=== PATIENT | female | born 1970 | race Hispanic/Latino ===

== ENCOUNTER 2019-02-26 18:35 | Emergency (ER) | payer SELFPAY ==
[2019-02-26] MEDS ORDERED: traMADol HCl 50 MG TAB ONE (19:35)
--- NOTE | 2019-02-26 20:01 | RAD ---
EXAM: RIGHT FOOT THREE VIEWS: 02/26/19 HISTORY: Pain and swelling following an injury while walking yesterday. There is some soft tissue swelling over the dorsal aspect of the forefoot. Mild degenerative changes. No acute fracture or dislocation. IMPRESSION: Soft tissue swelling over the dorsal aspect of the foot without acute fracture or dislocation. POS: RRE
== END 2019-02-26 19:40 | disposition home or self-care (01) ==
LOC: ERS 18:35
DX: L03.115 Cellulitis of right lower limb (principal); E11.9 Type 2 diabetes mellitus without complications; I10 Essential (primary) hypertension; F32.9 Major depressive disorder, single episode, unspecified; F17.210 Nicotine dependence, cigarettes, uncomplicated

== ENCOUNTER 2019-04-27 16:52 | Inpatient (IN) | payer SELFPAY ==
[2019-04-27] MEDS ORDERED: Nitroglycerin 2% Ointment 1 INCH/1 GM Packet ONE (17:05)
[2019-04-27] MEDS ORDERED: Labetalol HCl 100 MG/20 ML VIAL ONE (17:05)
[2019-04-27 17:11] LABS: #Basophils 0.1 thou/uL (0.0-0.2); #Eosinphils 0.5 thou/uL (0.0-0.7); #Lymphocytes 2.6 thou/uL (1.20-3.40); #Monocytes 0.7 thou/uL (0.11-0.59); #Neutrophils 5.2 thou/uL (1.40-6.50); %Basophils 0.7 % (0.0-1.0); %Eosinophils 5.1 % (0.0-10.0); %Lymphocytes 28.4 % (21.0-51.0); %Monocytes 7.9 % (0.0-10.0); Hemoglobin 13.6 g/dL (12.0-16.0); Mean Corpuscular HGB CONC 34.4 g/dL (32.0-36.0); Mean Corpuscular Hemoglobin 30.3 pg (27.0-31.0); Mean Corpuscular Volume 87.9 fL (78.0-98.0); Mean Platelet Volume 7.6 fL (7.4-10.4); Platelet Count 331 thou/uL (130-400); RBC Distribution Width 11.8 % (11.5-14.5)
[2019-04-27 17:17] LABS: INR-International Normal Ratio 0.9; PTT 24.9 SEC (22.9-36.1); Prothrombin Time 12.2 SEC (12.0-14.7)
[2019-04-27 17:24] LABS: ALT (SGPT) 15 U/L (8-55); AST (SGOT) 9 U/L (5-34); Albumin 3.4 g/dL (3.5-5.0); Alkaline Phosphatase 107 U/L (40-110); Anion Gap 12 mmol/L (10-20); BUN (Urea Nitrogen) 29 mg/dL (7.0-18.7); Bilirubin, Total 0.2 mg/dL (0.2-1.2); CK (CPK) 31 U/L (29-168); Calc. Creatinine Clearance 0 mL/min (70-130); Calcium 8.7 mg/dL (7.8-10.44); Carbon Dioxide 22 mmol/L (22-29); Chloride 105 mmol/L (98-107); Estimated GFR-MDRD 44; Globulin 3.3 g/dL (2.4-3.5); Glucose 476 mg/dL (70-105); Potassium 4.5 mmol/L (3.5-5.1); Protein, Total 6.7 g/dL (6.0-8.3); Sodium 134 mmol/L (136-145)
[2019-04-27] MEDS ORDERED: Aspirin 325 MG TAB ONE (17:36)
[2019-04-27] MEDS ORDERED: Insulin Regular 300 UNITS/3 ML VIAL ONE (17:36)
--- NOTE | 2019-04-27 19:15 | CT ---
CT Brain WO Con: 04/27/2019 5:06 PM CLINICAL HISTORY: Hypertension with left sided vision loss and headache. IMAGING TECHNIQUE: Multiple CT images were obtained of the brain without IV contrast. COMPARISON: None. FINDINGS: Brain: No acute infarct or hemorrhage is evident. No midline shift. Ventricles: Normal. No hydrocephalus.. Skull: Intact.. Visualized Paranasal sinuses: There is opacification of the a few right-sided ethmoid air cells and t he superior aspect of the right maxillary sinus.. Mastoid air cells:Clear. Extracranial soft tissues:Normal. IMPRESSION: No acute intracranial abnormality. Mild paranasal sinus disease Findings called to Dr. Ramirez at 5:15 PM on April 27, 2019.
--- NOTE | 2019-04-27 19:16 | CT ---
CTA of the head with IV contrast and 3-D reformatted imaging. CTA of the neck with IV contrast and 3-D reformatted imaging. INDICATION: Stroke COMPARISON: Noncontrast CT brain dated April 27, 2019 at 5:11 PM FINDINGS: CTA OF THE HEAD WITH CONTRAST: CTA OF THE BRAIN: Right ICA: Patent. Right MCA: Patent. Right NICK: Patent. ACOM: Patent. Left ICA: Patent. Left MCA: Patent. Left NICK: Patent. PCOMs: Patent. Vertebral arteries: Patent. Basilar Artery: Patent. grinder hand: Patent. Incidentals: There is a calcified meningioma measuring 5 mm overlying the left frontal lobe. No abno rmal enhancement is demonstrated. There is moderate mucosal thickening within the right maxillary sinus and right ethmoid air cells. CTA OF THE NECK WITH CONTRAST: Right CCA: Patent. Right ICA: Patent. Right Subclavian: Patent. Right Vertebral Artery: Patent. Left CCA: Originates off a bovine arch configuration. Patent. Left ICA: There is 40% luminal caliber narrowing involving the proximal left internal carotid artery . Left Subclavian: Patent. Left Vertebral Artery: Patent. Aerodigestive tract: Clear. Parotids/Submandibular/Thyroid glands: There is prominent heterogeneity of the thyroid gland suspici ous for multinodular goiter. The visualized submandibular and parotid glands are normal appearing. Lymph nodes: No pathologically enlarged lymph nodes. Lung Apices: Clear. Bones: There is [id number] cervical spondylosis. Incidentals: There is a subcutaneous cyst involving the left aspect of the neck measuring 1.4 cm mateo picious for a sebaceous cyst. IMPRESSION: 1. No hemodynamically significant stenosis, occlusion or aneurysmal formation within the brain. 2. 40% luminal caliber narrowing involving the proximal left internal carotid artery. No additional h emodynamically significant stenosis, occlusion or aneurysm formation seen within the neck. 3. Multinodular goiter. 4. sebaceous cyst of the left neck. 5. Calcified meningioma of the anterior left frontal skull.
[2019-04-27 20:29] LABS: Troponin I 0.017 ng/mL (< 0.028)
[2019-04-27] MEDS ORDERED: Lisinopril 10 MG TAB ONE (22:01)
[2019-04-27] MEDS ORDERED: Proparacaine 0.5% Opth 15 ML BOT ONE (22:01)
[2019-04-27] MEDS ORDERED: Ondansetron PF 4 MG/2 ML Vial IVP PRN (22:54)
[2019-04-27] MEDS ORDERED: Acetaminophen 325 MG Suppository PR PRN (22:54)
--- NOTE | 2019-04-27 23:03 | PDOC.HHP ---
Hospitalist HPI - History of Present Illness headache, blurry vision left eye History of Present Illness: This is a 48 year old female with past medical history of diabetes, hypertension in the past who presented to the ER with headache and left visual loss. The patient states that she woke up this morning and had a severe frontal headache. It was diffuse, non-radiating, exacerbated by light, no alleviating factors. During that time she noticed that she could not see out of her left eye. The patient reports retro-orbital eye pain, denies pain on movement. She states that her visual field appears like black wavy lines on her left side and after a light is shined in her left eye all she sees is black. She states several years ago she had a similar problem where one eye was paralyzed for months due to optic neuritis. This self-resolved. She denies history of MS. The patient states that she is not taking any antihypertensive medications because her PCP discontinued them a year ago. She denies chest pain , shortness of breath, dizziness, lightheadedness, abdominal pain, nausea, vomiting. ED Course: The patient was found to have a blood pressure of 235/116 on arrival. The patient was given nitro and labetalol with improvement in her blood pressure to 189/86. NIH stroke scale was 2. The patient had a CT brain which showed no acute disease. CTA showed no significant stenosis. She was admitted for further workup. Hospitalist ROS - Review of Systems Constitutional: denies: fever, chills Eyes: denies: vision change ENT: denies: ear pain, ear discharge Respiratory: denies: cough, dry, shortness of breath Cardiovascular: denies: chest pain, palpitations, orthopnea Gastrointestinal: denies: nausea, vomiting, abdominal pain Genitourinary: denies: dysuria, frequency, incontinence Musculoskeletal: denies: neck pain, shoulder pain Skin: denies: rash, lesions, prachi, bruising Neurological: denies: weakness, numbness, incoordination Hospitalist History - Past Medical History Cardiac: reports: HTN Endocrine: reports: Diabetes - Past Surgical History Past Surgical History: reports: - Family History Family History: reports: hypertension - Social History Smoking Status: Current every day smoker (smokes 5-6 cigarettes daily for past 35 years) Alcohol: reports: None Drugs: reports: none Living Situation: With Family Domestic Violence: Negative - Exam General Appearance: NAD, awake alert Eye: PERRL, anicteric sclera Eye - other findings: Unable to see in left eye. Unable to see retinal vessels in left eye. TP 15 ENT: normocephalic atraumatic, no oropharyngeal lesions, dry oral mucosa Neck: supple, symmetric, no JVD, no carotid bruit Heart: RRR, no murmur, no gallops Respiratory: CTAB, no wheezes, no rales, no ronchi Gastrointestinal: soft, non-tender, non-distended, normal bowel sounds Extremities: no cyanosis, no clubbing, no edema Skin: normal turgor, no lesions, no rashes Neurological: cranial nerve grossly intact, normal sensation to touch, no focal deficits, no new deficit Musculoskeletal: normal tone, normal strength, no muscle wasting Psychiatric: normal affect, normal behavior, A&O x 3 Hospitalist Results - Labs Result Diagrams: 04/27/19 17:00 04/27/19 17:00 Lab results: WBC 9.0 thou/uL (4.8-10.8) 04/27/19 17:00 Hgb 13.6 g/dL (12.0-16.0) 04/27/19 17:00 Hct 39.5 % (36.0-47.0) 04/27/19 17:00 MCV 87.9 fL (78.0-98.0) 04/27/19 17:00 Plt Count 331 thou/uL (130-400) 04/27/19 17:00 Neutrophils % 58.0 % (42.0-75.0) 04/27/19 17:00 Sodium 134 mmol/L (136-145) L 04/27/19 17:00 Potassium 4.5 mmol/L (3.5-5.1) 04/27/19 17:00 Chloride 105 mmol/L (98-107) 04/27/19 17:00 Carbon Dioxide 22 mmol/L (22-29) 04/27/19 17:00 BUN 29 mg/dL (7.0-18.7) H 04/27/19 17:00 Creatinine 1.30 mg/dL (0.6-1.1) H 04/27/19 17:00 Glucose 476 mg/dL (70-105) H 04/27/19 17:00 Calcium 8.7 mg/dL (7.8-10.44) 04/27/19 17:00 Total Bilirubin 0.2 mg/dL (0.2-1.2) 04/27/19 17:00 AST 9 U/L (5-34) 04/27/19 17:00 ALT 15 U/L (8-55) 04/27/19 17:00 Alkaline Phosphatase 107 U/L (40-110) 04/27/19 17:00 Creatine Kinase 31 U/L (29-168) 04/27/19 17:00 Troponin I 0.017 ng/mL (< 0.028) 04/27/19 19:55 Serum Total Protein 6.7 g/dL (6.0-8.3) 04/27/19 17:00 Albumin 3.4 g/dL (3.5-5.0) L 04/27/19 17:00 - EKG Interpretation EKG: normal sinus rhythm Hospitalist H&P A/P - Plan Plan: This is a 48 year old female who presented with uncontrolled hypertension, headache and left sided visual loss #Hypertensive Emergency #Left sided visual loss - possibly related to malignant hypertension vs retinal ischemia/occlusion vs retinal vein occlusion - s/p labetalol and nitro paste - will check BP q1, aim to keep BP 160-180 for next 24 hours then titrate slowly - CT head negative, CTA shows no significant stenosis. Will call opthalmology consult in the am - trend troponin x 3 #GARY - likely from uncontrolled hypertension - creatinine 1.3, check renal US - UA to evaluate proteinuria, RBC #Hyponatremia - sodium 134, will monitor #Type II diabetes - takes lantus 50 units SC nightly - sliding scale 20 units before each meal Diet: diabetic diet DVT prophylaxis: SCDS Code status: full code Total critical care face to face time spent was > 50 minutes
[2019-04-27 23:41] VITALS: BMI 29.5
[2019-04-27] MEDS ORDERED: FLU VACC QS2019-20(6MOS UP)/PF 60 MCG/0.5 ML SYRINGE IM ONE (23:45)
[2019-04-28] LABS: Troponin I 0.012 ng/mL (< 0.028)
[2019-04-28] MEDS ORDERED: hydrALAZINE 20 MG/ML VIAL SLOW IVP PRN (00:41)
[2019-04-28] MEDS: Acetaminophen 325 MG TAB PO PRN ×3 (00:49→20:38)
[2019-04-28 05:48] LABS: Band 1 % (5-11); Eosinophils 3 % (0-10); Hemoglobin 10.9 g/dL (12.0-16.0); Lymphocytes 32 % (21-51); MDiff Complete? YES; Mean Corpuscular HGB CONC 34.5 g/dL (32.0-36.0); Mean Corpuscular Hemoglobin 30.7 pg (27.0-31.0); Mean Corpuscular Volume 88.9 fL (78.0-98.0); Mean Platelet Volume 7.5 fL (7.4-10.4); Monocytes 6 % (0-10); Neutrophil 54 % (42-75); Platelet Count 257 thou/uL (130-400); RBC Distribution Width 11.6 % (11.5-14.5); Reactive Lymphocytes 4 % (0-10); Red Blood Cell (RBC) Count 3.54 mill/uL (4.20-5.40); White Blood Cell (WBC) Count 9.3 thou/uL (4.8-10.8)
[2019-04-28 06:42] LABS: ALT (SGPT) 10 U/L (8-55); AST (SGOT) 8 U/L (5-34); Albumin 2.7 g/dL (3.5-5.0); Alkaline Phosphatase 73 U/L (40-110); Anion Gap 9 mmol/L (10-20); BUN (Urea Nitrogen) 26 mg/dL (7.0-18.7); Bilirubin, Total 0.2 mg/dL (0.2-1.2); Calc. Creatinine Clearance 86 mL/min (70-130); Calcium 7.7 mg/dL (7.8-10.44); Carbon Dioxide 20 mmol/L (22-29); Chloride 110 mmol/L (98-107); Estimated GFR-MDRD 61; Globulin 2.3 g/dL (2.4-3.5); Glucose 250 mg/dL (70-105); Potassium 4.4 mmol/L (3.5-5.1); Sodium 135 mmol/L (136-145)
[2019-04-28] MEDS: Insulin Regular 300 UNITS/3 ML VIAL SC PRN (06:59)
--- NOTE | 2019-04-28 08:42 | ULT ---
Exam: Bilateral renal ultrasound HISTORY: Elevated creatinine COMPARISON: None FINDINGS: Right kidney: Normal cortical echotexture. No hydronephrosis. Right kidney measurements: 10.4 x 5.6 x 6.4 cm. Left kidney: Normal cortical echotexture. No hydronephrosis Left kidney measurements 11.8 x 6.1 x 4.8 cm. Urinary bladder: Normal mucosa. IMPRESSION: No hydronephrosis.
[2019-04-28] MEDS: HumaLOG 300 UNITS/3 ML VIAL SC SCH ×3 (09:49→17:21)
--- NOTE | 2019-04-28 12:26 | MRI ---
MRI BRAIN WITHOUT CONTRAST: Date: 04/28/19 HISTORY: Left-sided vision loss, hypertension, left-sided headache. FINDINGS: Correlation made with previous day's CT scan. No restricted diffusion is seen. No evidence of infarct, hemorrhage, midline shift, or abnormal extra -axial fluid collections are seen. The ventricular size is normal and the basilar cisterns are patent . There are a few foci of T2 prolongation in the periventricular white matter consistent with mild ch ronic small vessel ischemic disease. There is mucosal disease in the paranasal sinuses. IMPRESSION: No evidence of acute intracranial process. POS: TPC
--- NOTE | 2019-04-28 12:45 | PDOC.HOSPP ---
- Subjective Encounter Date: 04/28/19 Encounter Time: 12:30 Subjective: The patient states her headache is better. She still can't see out of left eye. Left eye pain is slightly better. BP better controlled - Objective Vital Signs & Weight: Vital Signs (12 hours) Temp Pulse Ox 04/28/19 08:00 100 04/28/19 07:24 97.6 F 04/28/19 04:10 98.2 F Weight Weight 170 lb 1.6 oz I&O: 04/27/19 04/28/19 04/29/19 06:59 06:59 06:59 Intake Total 240 Output Total 600 Balance -360 Result Diagrams: 04/28/19 05:17 04/28/19 05:16 Additional Labs: Accuchecks 04/28/19 04/28/19 04/27/19 10:34 06:09 17:04 POC Glucose 295 H 246 H 379 H Hospitalist ROS - Medication Medications: Active Medications Generic Name Dose Route Start Last Admin Trade Name Freq PRN Reason Stop Dose Admin Acetaminophen 650 mg 04/28/19 00:42 04/28/19 09:50 Tylenol PO 650 mg Q6H PRN Administration Headache/Fever or Pain Insulin Human Lispro 20 units 04/28/19 08:00 04/28/19 09:49 Humalog SC 20 unit TID-WM ANG Administration Insulin Human Regular 0 units 04/27/19 22:54 04/28/19 06:59 Humulin R SC 3 unit .MILD SLIDING SCALE PRN Administration Mild Correctional Scale - Exam General Appearance: NAD, awake alert Eye: PERRL, anicteric sclera Eye - other findings: Patient still cannot see out of left eye. ENT: normocephalic atraumatic, no oropharyngeal lesions Neck: supple, symmetric, no JVD, no thyromegaly Heart: RRR, no murmur Respiratory: CTAB, no wheezes, no rales, no ronchi Gastrointestinal: soft, non-tender, non-distended, normal bowel sounds Extremities: no cyanosis, no clubbing, no edema, 1+ LE edema Skin: normal turgor, no lesions, no rashes Neurological: cranial nerve grossly intact, normal sensation to touch, no focal deficits, no new deficit Hosp A/P - Plan This is a 48 year old female who presented with uncontrolled hypertension, headache and left sided visual loss #Hypertensive Emergency #Left sided visual loss - possibly related to malignant hypertension vs retinal ischemia/occlusion vs retinal vein occlusion - Bp better controlled, now in the 140s. Started nifedipine 30 mg daily . Will transfer to floor - MRI showed no stroke, CTA negative, CT head negative. Will check ECHO - opthalmology evaluating patient currently #GARY - likely from uncontrolled hypertension - creatinine 1.3, renal US showed no hydronephrosis - UA to evaluate proteinuria, RBC #Hyponatremia - sodium 134, will monitor #Type II diabetes - takes lantus 50 units SC nightly - sliding scale 20 units before each meal Code status: full code
[2019-04-28] MEDS ORDERED: NIFEdipine XL 30 MG TAB PO SCH (15:45)
[2019-04-28] MEDS ORDERED: Insulin Glargine 50 UNITS in Pre-Filled Syringe 1 EACH SC SCH (21:00)
[2019-04-28] MEDS ORDERED: Lisinopril 10 MG TAB PO SCH (23:45)
[2019-04-29] MEDS: Insulin Regular 300 UNITS/3 ML VIAL SC PRN (06:35)
[2019-04-29 06:53] LABS: Mean Corpuscular HGB CONC 32.8 g/dL (32.0-36.0); Mean Corpuscular Hemoglobin 29.5 pg (27.0-31.0); Mean Corpuscular Volume 89.8 fL (78.0-98.0); Mean Platelet Volume 7.6 fL (7.4-10.4); Platelet Count 299 thou/uL (130-400); RBC Distribution Width 11.8 % (11.5-14.5); Red Blood Cell (RBC) Count 4.06 mill/uL (4.20-5.40); White Blood Cell (WBC) Count 9.2 thou/uL (4.8-10.8)
[2019-04-29 07:10] LABS: ALT (SGPT) 9 U/L (8-55); AST (SGOT) 9 U/L (5-34); Albumin 2.8 g/dL (3.5-5.0); Alkaline Phosphatase 74 U/L (40-110); Anion Gap 9 mmol/L (10-20); BUN (Urea Nitrogen) 18 mg/dL (7.0-18.7); Bilirubin, Total 0.3 mg/dL (0.2-1.2); Calc. Creatinine Clearance 97 mL/min (70-130); Calcium 8.1 mg/dL (7.8-10.44); Carbon Dioxide 22 mmol/L (22-29); Chloride 110 mmol/L (98-107); Estimated GFR-MDRD 71; Globulin 2.7 g/dL (2.4-3.5); Glucose 182 mg/dL (70-105); Potassium 4.1 mmol/L (3.5-5.1); Protein, Total 5.5 g/dL (6.0-8.3); Sodium 137 mmol/L (136-145)
[2019-04-29 07:51] LABS: Band 3 % (5-11); Eosinophils 6 % (0-10); Lymphocytes 29 % (21-51); MDiff Complete? YES; Monocytes 3 % (0-10); Neutrophil 58 % (42-75); RBC Morphology Normal; Reactive Lymphocytes 1 % (0-10)
[2019-04-29] MEDS ORDERED: Lisinopril 10 MG TAB PO SCH (09:00)
[2019-04-29] MEDS ORDERED: NIFEdipine XL 30 MG TAB PO SCH ×2 (09:00)
[2019-04-29] MEDS: HumaLOG 300 UNITS/3 ML VIAL SC SCH ×3 (09:17→17:08)
[2019-04-29 09:20] VITALS: BP 150/78
[2019-04-29 16:37] VITALS: TEMP 98.3
== END 2019-04-29 17:41 | disposition home or self-care (01) | DRG 305 ==
LOC: ERS 16:52 → 2SE 22:39 → IMCU/EMU 04-28 00:25
PROVIDERS: ADMIT Internal Medicine; ATTEND Internal Medicine
DX: I16.1 Hypertensive emergency (principal); N17.9 Acute kidney failure, unspecified; E87.1 Hypo-osmolality and hyponatremia; R29.702 NIHSS score 2; F17.210 Nicotine dependence, cigarettes, uncomplicated; H43.12 Vitreous hemorrhage, left eye; E11.65 Type 2 diabetes mellitus with hyperglycemia
CPT/HCPCS: 36415; 36416; 70450; 70496; 70498; 70551; 76770; 80053; 82550; 84443; 84484; 85007; 85025; 85027; 85610; 85730; 90471; 90686; 93306; 96361; 96374; 96375; G0008; J0360; J1815

== ENCOUNTER 2019-08-18 09:53 | Emergency (ER) | payer OTHER ==
[2019-08-18] MEDS ORDERED: Fluorescein Opthalmic Strip ONE (10:28)
[2019-08-18] MEDS ORDERED: Proparacaine 0.5% Opth 15 ML BOT ONE (10:29)
== END 2019-08-18 10:50 | disposition home or self-care (01) ==
LOC: ERS 09:53
DX: H33.22 Serous retinal detachment, left eye (principal); E11.9 Type 2 diabetes mellitus without complications; I10 Essential (primary) hypertension; F32.9 Major depressive disorder, single episode, unspecified; F17.210 Nicotine dependence, cigarettes, uncomplicated; Z79.4 Long term (current) use of insulin
CPT/HCPCS: 99283

== ENCOUNTER 2019-11-19 00:52 | Emergency (ER) | payer BC, OTHER ==
[2019-11-19 01:28] LABS: #Eosinphils 0.4 thou/uL (0.0-0.7); #Lymphocytes 4.6 thou/uL (1.20-3.40); #Monocytes 1.2 thou/uL (0.11-0.59); #Neutrophils 7.9 thou/uL (1.40-6.50); %Basophils 0.2 % (0.0-1.0); %Eosinophils 3.1 % (0.0-10.0); %Lymphocytes 32.7 % (21.0-51.0); %Monocytes 8.2 % (0.0-10.0); %Neutrophils 55.7 % (42.0-75.0); Mean Corpuscular HGB CONC 33.1 g/dL (32.0-36.0); Mean Corpuscular Hemoglobin 30.2 pg (27.0-31.0); Mean Platelet Volume 7.6 fL (7.4-10.4); Platelet Count 319 thou/uL (130-400); RBC Distribution Width 11.7 % (11.5-14.5); White Blood Cell (WBC) Count 14.2 thou/uL (4.8-10.8)
[2019-11-19 01:48] LABS: Troponin I 0.012 ng/mL (< 0.028)
[2019-11-19 01:53] LABS: Albumin 3.4 g/dL (3.5-5.0)
[2019-11-19 01:54] LABS: Calcium 8.3 mg/dL (7.8-10.44); Chloride 109 mmol/L (98-107); Potassium 3.3 mmol/L (3.5-5.1); Sodium 141 mmol/L (136-145)
[2019-11-19 01:55] LABS: Globulin 2.7 g/dL (2.4-3.5); Glucose 72 mg/dL (70-105); Protein, Total 6.1 g/dL (6.0-8.3)
[2019-11-19 01:57] LABS: Anion Gap 13 mmol/L (10-20); Bilirubin, Total 0.2 mg/dL (0.2-1.2); Carbon Dioxide 22 mmol/L (22-29)
[2019-11-19 01:58] LABS: Alkaline Phosphatase 95 U/L (40-110); Calc. Creatinine Clearance 0 mL/min (70-130); Estimated GFR-MDRD 50
[2019-11-19 01:59] LABS: BUN (Urea Nitrogen) 22 mg/dL (7.0-18.7)
[2019-11-19 02:00] LABS: AST (SGOT) 12 U/L (5-34)
[2019-11-19 02:01] LABS: ALT (SGPT) 8 U/L (8-55)
--- NOTE | 2019-11-19 07:14 | RAD ---
Exam: Chest one view HISTORY:No clinical history is provided Comparison: None FINDINGS: Cardiac silhouette: Normal Aorta: Unremarkable Pulmonary vessels: Normal Costophrenic angles: Clear LUNGS: Minimal left suprahilar opacity. Pneumothorax: None Osseous abnormalities: None IMPRESSION: Minimal left suprahilar opacity. Continued surveillance is recommended CODE T
== END 2019-11-19 02:37 | disposition home or self-care (01) ==
LOC: ERS 00:52
DX: R53.1 Weakness (principal); R53.83 Other fatigue; E11.9 Type 2 diabetes mellitus without complications; I10 Essential (primary) hypertension; E06.3 Autoimmune thyroiditis; F32.9 Major depressive disorder, single episode, unspecified; F17.210 Nicotine dependence, cigarettes, uncomplicated; Z79.4 Long term (current) use of insulin; Z79.899 Other long term (current) drug therapy
CPT/HCPCS: 36416; 71045; 80053; 84484; 85025

== ENCOUNTER 2019-12-30 05:52 | Outpatient (CLI) | payer BC, OTHER ==
[2019-12-31 16:01] LABS: SARS-CoV-2 MS2 Positive; SARS-CoV-2 N Gene Negative; SARS-CoV-2 S Gene Negative; SARS-CoV-2 orf1ab Negative
== END 2019-12-30 05:53 | disposition home or self-care (01) ==
LOC: LABBT 05:52
PROVIDERS: ATTEND Ophthalmology Retina Specialist
DX: Z01.812 Encounter for preprocedural laboratory examination (principal); Z11.59 Encounter for screening for other viral diseases
CPT/HCPCS: 87635; U0003

== ENCOUNTER 2020-01-03 06:13 | Day surgery (SDC) | payer BC ==
[2019-12-27 11:36] VITALS: BMI 27.8
[2020-01-03] MEDS ORDERED: EPINEPHrine 0.3 MG in Ophthalmic Irrigation Solution 500 ML IRR SCH ×2 (06:19→06:35)
[2020-01-03] MEDS ORDERED: Cyclopentolate 1% Opth Drop 2 ML BOT ONE (06:23)
[2020-01-03] MEDS ORDERED: Phenylephrine 2.5% Ophth Soln 5 ML BOT ONE (06:23)
[2020-01-03] MEDS ORDERED: Fentanyl 100 MCG/2 ML VIAL ONE (06:34)
[2020-01-03] MEDS ORDERED: Midazolam HCl 2 mg/2 ml Vial ONE ×2 (06:34→07:27)
[2020-01-03] MEDS ORDERED: PROPOFOL 20 ML ONE (06:35)
[2020-01-03] MEDS ORDERED: Insulin Regular 300 UNITS/3 ML VIAL ONE (07:29)
--- NOTE | 2020-01-03 09:15 | OP ---
DATE OF PROCEDURE: 01/03/2020 PRINCIPAL PREOPERATIVE DIAGNOSES: 1. Vitreous hemorrhage, left eye. 2. Tractional retinal detachment, left eye. 3. Proliferative diabetic retinopathy, left eye. POSTOPERATIVE DIAGNOSES: 1. Vitreous hemorrhage, left eye. 2. Tractional retinal detachment, left eye. 3. Proliferative diabetic retinopathy, left eye. PROCEDURES PERFORMED: 1. 25-gauge pars plana vitrectomy, left eye. 2. Tractional retinal detachment repair, left eye. 3. Endolaser panretinal photocoagulation, left eye. ESTIMATED BLOOD LOSS: None. SPECIMENS REMOVED: None. COMPLICATIONS: None. ANESTHESIA: MAC with sub-Tenon block. DESCRIPTION OF PROCEDURE: The patient was identified in the preoperative holding area. The correct eye being the left eye was marked for surgery. The patient was taken to the operating room, where MAC anesthesia was induced. The left eye was prepped and draped in the usual sterile ophthalmic fashion for surgery. A wire-clip lid speculum was placed. An inferonasal conjunctival peritomy was fashioned with Yodit scissors for administration of sub-Tenon block. The block consisted of 1:1 ratio of 4% lidocaine and 0.75% Marcaine. Total of 5 mL was administered. A standard 25-gauge pars plana vitrectomy platform was fashioned with trocars placed approximately 4 mm from the limbus. The infusion was noted to be within the vitreous cavity prior to being turned on to infusion pressure of 30 mmHg. The light pipe and micro vitrector were introduced in the eye under visualization of the BIOM viewing system. A significant vitreous hemorrhage was noted obscuring view of the fundus. A careful core vitrectomy was performed progressively working posteriorly with an improved visualization of the retina. Following completion of the core vitrectomy, a progressive peripheral shave vitrectomy was performed relieving traction from the opacified posterior hyaloid. A tractional retinal detachment was noted with extensive fibers proliferation over the optic nerve extending inferotemporally as well as along the inferotemporal arcade vessels. These areas of tractional retinal detachment were delaminated and segmented with the use of the micro vitrector. Following vitrectomy, significant relaxation of the retina was noted. No defects were noted within the retina during this time. An inferior scleral depressed exam was performed to help to assist in removal of any vitreous hemorrhage. A 360-degree panretinal photocoagulation was placed with the Endolaser sparing of the 3 and 9 o'clock meridians. The cannulas were sequentially removed with suturing of the supranasal sclerotomy required with 8-0 Vicryl suture. Following suturing, all sclerotomies were noted to be watertight. Subconjunctival Ancef and Kenalog were injected. The wire lid speculum was removed followed by application of TobraDex ophthalmic ointment and a light patch and shield. The patient tolerated the procedure well and was taken to outpatient recovery area in good condition. Job ID: [id number]
[2020-01-03] MEDS ORDERED: Lidocaine 1% PF 5 ML VIAL ONE (11:55)
[2020-01-03] MEDS ORDERED: Lidocaine 4% PF 5 ML AMP ONE (11:55)
[2020-01-03] MEDS ORDERED: Triamcinolone 40 MG/ML VIAL ONE (11:55)
[2020-01-03] MEDS ORDERED: CEFAZOLIN 1 GM VIAL ONE (11:55)
[2020-01-03] MEDS ORDERED: Bupivacaine PF 0.75% SDV 10 ML ONE (11:55)
[2020-01-03] MEDS ORDERED: Maxitrol 0.1% Opth Oint 3.5 GM TUBE ONE (11:55)
[2020-01-03] MEDS ORDERED: PROPOFOL 200 MG/20 ML VIAL ONE (11:55)
== END 2020-01-03 09:30 | disposition home or self-care (01) ==
LOC: SDC 06:13
PROVIDERS: ATTEND Ophthalmology Retina Specialist
PROC: 08U10JZ Supplement of Left Eye with Synthetic Substitute, Open Approach (ICD-10-PCS; principal; 2020-01-03)
PROC: 08T53ZZ Resection of Left Vitreous, Percutaneous Approach (ICD-10-PCS; principal; 2020-01-03)
DX: E11.3532 Type 2 diabetes mellitus with proliferative diabetic retinopathy with traction retinal detachment not involving the macula, left eye (principal); H43.12 Vitreous hemorrhage, left eye; Z79.4 Long term (current) use of insulin; Z79.899 Other long term (current) drug therapy
CPT/HCPCS: 36416; J0171; J0690; J1815; J2001; J2250; J2704; J3010; J3301; J3490

== ENCOUNTER 2020-03-22 13:54 | Outpatient (CLI) | payer BC ==
--- NOTE | 2020-03-22 14:42 | ULT ---
BILATERAL RENAL ULTRASOUND: Date: 03/22/2020 HISTORY: Stage III chronic renal disease. FINDINGS: The right kidney measures 10.4 cm in length and the left kidney measures 11.3 cm in length. A 1.6 x 1 .3 x 1.5 cm cyst is seen in the right kidney. No hydronephrosis seen on either side. The bladder volu me is about 60 mL. The urinary bladder is grossly unremarkable. IMPRESSION: Right renal cyst. POS: AH
--- NOTE | 2020-03-22 14:51 | ULT ---
BILATERAL LOWER EXTREMITY VENOUS DOPPLER ULTRASOUND: Date: 03/22/2020 HISTORY: Bilateral lower extremity pain. Edema in right ankle. TECHNIQUE: Dejesus scale ultrasound with color flow and spectral Doppler imaging of the deep venous systems of the lower extremities was performed bilaterally. FINDINGS: There is good flow, compression, and augmentation noted in the common femoral, femoral, deep femoral, popliteal, posterior tibial, and greater saphenous veins on both sides. IMPRESSION: No evidence of deep venous thrombosis in either lower extremity. POS: AH
== END 2020-03-22 13:55 | disposition home or self-care (01) ==
LOC: BICULT 13:54
PROVIDERS: ATTEND Internal Medicine Nephrology
DX: N18.3 Chronic kidney disease, stage 3 (moderate) (principal); R60.0 Localized edema; N28.1 Cyst of kidney, acquired
CPT/HCPCS: 76770; 93970

== ENCOUNTER 2020-04-16 19:15 | Emergency (ER) | payer BC ==
[2020-04-16] MEDS ORDERED: diphenhydrAMINE 50 MG/ML VIAL ONE (20:01)
[2020-04-16] MEDS ORDERED: Magnesium 2 GM/50 ML BAG (IN WATER) ONE (20:01)
[2020-04-16] MEDS ORDERED: Acetaminophen 500 MG TAB ONE (20:01)
[2020-04-16] MEDS ORDERED: Metoclopramide HCl 10 MG/2 ML VIAL ONE (20:01)
== END 2020-04-16 21:05 | disposition home or self-care (01) ==
LOC: ERS 19:15
DX: R51.9 Headache, unspecified (principal); E11.9 Type 2 diabetes mellitus without complications; I10 Essential (primary) hypertension; Z87.891 Personal history of nicotine dependence; Z79.4 Long term (current) use of insulin; Z79.899 Other long term (current) drug therapy
CPT/HCPCS: 96365; 96368; 96375; J1200; J2765; J3475

== ENCOUNTER 2020-11-17 10:47 | Emergency (ER) | payer BC, SELFPAY ==
[2020-11-17] MEDS ORDERED: Metoclopramide HCl 10 MG/2 ML VIAL ONE (11:28)
[2020-11-17] MEDS ORDERED: diphenhydrAMINE 50 MG/ML VIAL ONE (11:44)
== END 2020-11-17 13:23 | disposition home or self-care (01) ==
LOC: ERS 10:47
DX: R51.9 Headache, unspecified (principal); E11.9 Type 2 diabetes mellitus without complications; I10 Essential (primary) hypertension; Z87.891 Personal history of nicotine dependence; Z79.4 Long term (current) use of insulin; Z79.899 Other long term (current) drug therapy
CPT/HCPCS: 36416; 96365; 96368; J1200; J2765

== ENCOUNTER 2021-04-09 18:50 | Emergency (ER) | payer SELFPAY ==
[2021-04-09] MEDS ORDERED: Fluorescein Opthalmic Strip ONE (19:43)
[2021-04-09] MEDS ORDERED: Proparacaine 0.5% Opth 15 ML BOT ONE (19:43)
== END 2021-04-09 20:20 | disposition home or self-care (01) ==
LOC: ERS 18:50
DX: S05.01XA Injury of conjunctiva and corneal abrasion without foreign body, right eye, initial encounter (principal); I10 Essential (primary) hypertension; E11.9 Type 2 diabetes mellitus without complications; F17.210 Nicotine dependence, cigarettes, uncomplicated; Z79.4 Long term (current) use of insulin; Z79.899 Other long term (current) drug therapy; X58.XXXA Exposure to other specified factors, initial encounter
CPT/HCPCS: 99282

== ENCOUNTER 2021-10-06 16:52 | Emergency (ER) | payer SELFPAY | END 2021-10-06 17:42 | disposition left against medical advice (07) | LOC: ERS 16:52 | DX: Z53.21 Procedure and treatment not carried out due to patient leaving prior to being seen by health care provider (principal) ==

== ENCOUNTER 2021-12-15 03:56 | Inpatient (IN) | payer SELFPAY ==
[2021-12-15] MEDS ORDERED: cloNIDine 0.1 MG TAB ONE (04:11)
[2021-12-15 04:40] LABS: #Basophils 0.1 thou/uL (0.0-0.2); #Eosinphils 0.6 thou/uL (0.0-0.7); #Lymphocytes 2.9 thou/uL (1.20-3.40); #Monocytes 0.8 thou/uL (0.11-0.59); #Neutrophils 5.3 thou/uL (1.40-6.50); %Basophils 0.9 % (0.0-1.0); %Lymphocytes 30.2 % (21.0-51.0); %Monocytes 7.9 % (0.0-10.0); %Neutrophils 55.1 % (42.0-75.0); Hemoglobin 13.7 g/dL (12.0-16.0); Mean Corpuscular HGB CONC 32.5 g/dL (32.0-36.0); Mean Corpuscular Hemoglobin 29.6 pg (27.0-31.0); Mean Corpuscular Volume 91.2 fL (78.0-98.0); Mean Platelet Volume 7.9 fL (7.4-10.4); Platelet Count 272 thou/uL (130-400); RBC Distribution Width 12.3 % (11.5-14.5); Red Blood Cell (RBC) Count 4.63 mill/uL (4.20-5.40); White Blood Cell (WBC) Count 9.6 thou/uL (4.8-10.8)
[2021-12-15 04:56] LABS: Anion Gap 10 mmol/L (10-20); BUN (Urea Nitrogen) 37 mg/dL (9.8-20.1); Calc. Creatinine Clearance 0 mL/min (70-130); Carbon Dioxide 21 mmol/L (22-29); Chloride 107 mmol/L (98-107); Potassium 4.7 mmol/L (3.5-5.1); Sodium 133 mmol/L (136-145)
[2021-12-15 04:57] LABS: ALT (SGPT) 10 U/L (8-55); AST (SGOT) 9 U/L (5-34); Albumin 2.7 g/dL (3.5-5.0); Alkaline Phosphatase 119 U/L (40-110); Bilirubin, Total 0.3 mg/dL (0.2-1.2); Calcium 8.1 mg/dL (7.8-10.44); Glucose 370 mg/dL (70-105); Protein, Total 5.7 g/dL (6.0-8.3)
[2021-12-15] MEDS ORDERED: Dextrose 5% in Water 1,000 ML IV PRN (05:37)
[2021-12-15] MEDS ORDERED: hydrALAZINE 20 MG/ML VIAL SLOW IVP PRN (05:37)
[2021-12-15] MEDS ORDERED: Labetalol HCl 100 MG/20 ML VIAL SLOW IVP PRN (05:37)
[2021-12-15] MEDS ORDERED: Ondansetron PF 4 MG/2 ML Vial IVP PRN (05:37)
[2021-12-15] MEDS ORDERED: Dextrose 50% Abboject 50 ML SYRINGE SLOW IVP PRN (05:37)
[2021-12-15] MEDS ORDERED: Ondansetron ODT 4 MG TAB PO PRN (05:37)
[2021-12-15] MEDS ORDERED: Acetaminophen 500 MG TAB PO PRN (05:37)
[2021-12-15] MEDS ORDERED: Aspirin Chewable 81 MG TAB PO SCH (06:00)
[2021-12-15] MEDS ORDERED: Metoprolol Tartrate 25 MG TAB PO SCH (06:00)
[2021-12-15 08:06] LABS: Troponin I 0.019 ng/mL (< 0.028)
[2021-12-15] MEDS ORDERED: Famotidine 20 MG TAB PO SCH (09:00)
[2021-12-15] MEDS: Aspirin 81 mg Enteric Coated Tablet PO SCH (09:20)
[2021-12-15] MEDS: Metoprolol Tartrate 25 MG TAB PO SCH ×2 (09:21→19:54)
[2021-12-15] MEDS: Sodium Chloride 0.9% 1,000 ML IV SCH (09:22)
[2021-12-15 10:20] VITALS: BMI 30.9
[2021-12-15 10:55] LABS: Troponin I 0.018 ng/mL (< 0.028)
[2021-12-15] MEDS: HumaLOG 300 UNITS/3 ML VIAL SC PRN ×3 (12:04→20:49)
[2021-12-15] MEDS ORDERED: Lactated Ringer's 500 ML IV SCH ×2 (21:30→22:30)
[2021-12-16] MEDS ORDERED: Fluticasone Propionate Nasal Spray 16 gm Bottle NASAL PRN (01:29)
[2021-12-16 04:44] LABS: #Basophils 0.1 thou/uL (0.0-0.2); #Eosinphils 0.6 thou/uL (0.0-0.7); #Lymphocytes 3.6 thou/uL (1.20-3.40); #Monocytes 0.9 thou/uL (0.11-0.59); %Basophils 0.7 % (0.0-1.0); %Eosinophils 5.5 % (0.0-10.0); %Lymphocytes 32.4 % (21.0-51.0); %Monocytes 7.6 % (0.0-10.0); %Neutrophils 53.8 % (42.0-75.0); Hemoglobin 12.2 g/dL (12.0-16.0); Mean Corpuscular HGB CONC 32.8 g/dL (32.0-36.0); Mean Corpuscular Volume 91.5 fL (78.0-98.0); Mean Platelet Volume 7.6 fL (7.4-10.4); Platelet Count 255 thou/uL (130-400); RBC Distribution Width 12.5 % (11.5-14.5); Red Blood Cell (RBC) Count 4.07 mill/uL (4.20-5.40); White Blood Cell (WBC) Count 11.1 thou/uL (4.8-10.8)
[2021-12-16 05:13] LABS: Hemoglobin A1c 11.5 % (4.0-6.0)
[2021-12-16 05:41] LABS: ALT (SGPT) 10 U/L (8-55); AST (SGOT) 8 U/L (5-34); Albumin 2.4 g/dL (3.5-5.0); Alkaline Phosphatase 85 U/L (40-110); Anion Gap 8 mmol/L (10-20); BUN (Urea Nitrogen) 34 mg/dL (9.8-20.1); Bilirubin, Total 0.3 mg/dL (0.2-1.2); Calc. Creatinine Clearance 39 mL/min (70-130); Calcium 7.8 mg/dL (7.8-10.44); Carbon Dioxide 20 mmol/L (22-29); Cardiac Risk 4.8 (Less than 4.5); Chloride 110 mmol/L (98-107); Cholesterol 176 mg/dl (< 200 Desired); Globulin 2.5 g/dL (2.4-3.5); Glucose 250 mg/dL (70-105); HDL Cholesterol 37 mg/dL (>60 Neg Risk); LDL Cholesterol, Calculated 116 mg/dL; Magnesium 1.8 mg/dL (1.6-2.6); Potassium 4.8 mmol/L (3.5-5.1); Protein, Total 4.9 g/dL (6.0-8.3); Sodium 133 mmol/L (136-145); Triglycerides 113 mg/dL (Less than 150)
[2021-12-16] MEDS: Sodium Chloride 0.9% 1,000 ML IV SCH (05:49)
[2021-12-16] MEDS ORDERED: Carvedilol 6.25 MG TAB PO SCH (10:15)
[2021-12-16] MEDS: NIFEdipine XL 60 MG TAB PO SCH (11:42)
[2021-12-16] MEDS: Famotidine 20 MG TAB PO SCH (11:45)
[2021-12-16] MEDS: Metoprolol Tartrate 25 MG TAB PO SCH (11:47)
[2021-12-16] MEDS: Aspirin 81 mg Enteric Coated Tablet PO SCH (11:50)
[2021-12-16] MEDS: HumaLOG 300 UNITS/3 ML VIAL SC PRN (11:55)
[2021-12-16] MEDS: HumaLOG 300 UNITS/3 ML VIAL SC SCH ×3 (12:02→18:30)
[2021-12-16] MEDS ORDERED: HumaLOG 300 UNITS/3 ML VIAL SC SCH (17:45)
[2021-12-16] MEDS: Carvedilol 6.25 MG TAB PO SCH (17:53)
[2021-12-16] MEDS: Insulin Glargine 30 UNITS/0.3 ML VIAL SC SCH (22:54)
[2021-12-16] MEDS ORDERED: Insulin Glargine 30 UNITS/0.3 ML VIAL SC SCH (23:00)
[2021-12-17] MEDS: Sodium Chloride 0.9% 1,000 ML IV SCH ×2 (04:17→04:18)
[2021-12-17] MEDS: Levothyroxine Sodium 50 MCG TAB PO SCH (04:49)
[2021-12-17 05:00] LABS: #Eosinphils 0.5 thou/uL (0.0-0.7); #Lymphocytes 3.2 thou/uL (1.20-3.40); #Monocytes 0.8 thou/uL (0.11-0.59); #Neutrophils 4.7 thou/uL (1.40-6.50); %Basophils 0.3 % (0.0-1.0); %Eosinophils 5.8 % (0.0-10.0); %Lymphocytes 34.4 % (21.0-51.0); %Monocytes 8.9 % (0.0-10.0); %Neutrophils 50.6 % (42.0-75.0); Hemoglobin 11.8 g/dL (12.0-16.0); Mean Corpuscular HGB CONC 32.3 g/dL (32.0-36.0); Mean Corpuscular Hemoglobin 29.8 pg (27.0-31.0); Mean Corpuscular Volume 92.3 fL (78.0-98.0); Mean Platelet Volume 7.9 fL (7.4-10.4); Platelet Count 253 thou/uL (130-400); RBC Distribution Width 12.5 % (11.5-14.5); Red Blood Cell (RBC) Count 3.96 mill/uL (4.20-5.40); White Blood Cell (WBC) Count 9.2 thou/uL (4.8-10.8)
[2021-12-17 05:30] LABS: Anion Gap 10 mmol/L (10-20); BUN (Urea Nitrogen) 37 mg/dL (9.8-20.1); Calc. Creatinine Clearance 40 mL/min (70-130); Calcium 7.9 mg/dL (7.8-10.44); Carbon Dioxide 21 mmol/L (22-29); Chloride 112 mmol/L (98-107); Glucose 206 mg/dL (70-105); Sodium 138 mmol/L (136-145)
[2021-12-17] MEDS ORDERED: HumaLOG 300 UNITS/3 ML VIAL SC SCH ×4 (08:00→22:32)
[2021-12-17] MEDS: Carvedilol 6.25 MG TAB PO SCH ×2 (08:54→17:38)
[2021-12-17] MEDS: NIFEdipine XL 60 MG TAB PO SCH (08:54)
[2021-12-17] MEDS: Famotidine 20 MG TAB PO SCH (08:54)
[2021-12-17] MEDS: Aspirin 81 mg Enteric Coated Tablet PO SCH (08:54)
[2021-12-17] MEDS ORDERED: Carvedilol 6.25 MG TAB PO SCH (10:15)
[2021-12-17] MEDS: HumaLOG 300 UNITS/3 ML VIAL SC PRN (11:00)
[2021-12-17] MEDS: HumaLOG 300 UNITS/3 ML VIAL SC SCH ×2 (13:13→17:39)
[2021-12-17 13:26] LABS: Glucose POC Confirmation 357 mg/dl (70-105)
[2021-12-17] MEDS: Insulin Glargine 30 UNITS/0.3 ML VIAL SC SCH (20:18)
[2021-12-18] MEDS: Levothyroxine Sodium 50 MCG TAB PO SCH (04:02)
[2021-12-18 05:21] LABS: Anion Gap 14 mmol/L (10-20); BUN (Urea Nitrogen) 37 mg/dL (9.8-20.1); Calc. Creatinine Clearance 39 mL/min (70-130); Carbon Dioxide 15 mmol/L (22-29); Chloride 111 mmol/L (98-107); Glucose 196 mg/dL (70-105); Potassium 5.8 mmol/L (3.5-5.1); Sodium 134 mmol/L (136-145)
[2021-12-18 05:24] LABS: #Basophils 0.1 thou/uL (0.0-0.2); #Eosinphils 0.7 thou/uL (0.0-0.7); #Lymphocytes 3.1 thou/uL (1.20-3.40); #Monocytes 0.7 thou/uL (0.11-0.59); #Neutrophils 6.3 thou/uL (1.40-6.50); %Basophils 0.6 % (0.0-1.0); %Eosinophils 6.4 % (0.0-10.0); %Lymphocytes 28.9 % (21.0-51.0); %Monocytes 6.3 % (0.0-10.0); %Neutrophils 57.7 % (42.0-75.0); Hemoglobin 13.6 g/dL (12.0-16.0); Mean Corpuscular HGB CONC 32.3 g/dL (32.0-36.0); Mean Corpuscular Hemoglobin 30.5 pg (27.0-31.0); Mean Corpuscular Volume 94.5 fL (78.0-98.0); Mean Platelet Volume 9.8 fL (7.4-10.4); Platelet Count 151 thou/uL (130-400); RBC Distribution Width 12.7 % (11.5-14.5); Red Blood Cell (RBC) Count 4.46 mill/uL (4.20-5.40); White Blood Cell (WBC) Count 10.9 thou/uL (4.8-10.8)
[2021-12-18] MEDS: Aspirin 81 mg Enteric Coated Tablet PO SCH (08:22)
[2021-12-18] MEDS: Famotidine 20 MG TAB PO SCH (08:22)
[2021-12-18] MEDS: Carvedilol 6.25 MG TAB PO SCH ×2 (08:23→16:19)
[2021-12-18] MEDS: FLUoxetine HCl 20 MG CAP PO SCH (08:23)
[2021-12-18] MEDS: NIFEdipine XL 60 MG TAB PO SCH ×2 (08:23→20:53)
[2021-12-18] MEDS: HumaLOG 300 UNITS/3 ML VIAL SC SCH ×3 (08:25→16:19)
[2021-12-18] MEDS ORDERED: Insulin Glargine 30 UNITS/0.3 ML VIAL SC SCH ×2 (09:00→21:00)
[2021-12-18] MEDS ORDERED: Sodium Bicarbonate 150 MEQ in Dextrose 5% in Water 1,000 ML IV SCH (10:00)
[2021-12-18] MEDS: Sodium Bicarbonate Tab 325 MG TAB PO SCH ×3 (11:05→20:53)
[2021-12-18 16:34] LABS: Anion Gap 11 mmol/L (10-20); BUN (Urea Nitrogen) 36 mg/dL (9.8-20.1); Calc. Creatinine Clearance 34 mL/min (70-130); Calcium 7.5 mg/dL (7.8-10.44); Carbon Dioxide 19 mmol/L (22-29); Chloride 106 mmol/L (98-107); Glucose 387 mg/dL (70-105); Potassium 4.9 mmol/L (3.5-5.1); Sodium 131 mmol/L (136-145)
[2021-12-18] MEDS: HumaLOG 300 UNITS/3 ML VIAL SC PRN ×2 (18:10→21:12)
[2021-12-18] MEDS ORDERED: HumaLOG 300 UNITS/3 ML VIAL SC SCH (21:19)
[2021-12-19 05:16] LABS: #Eosinphils 0.6 thou/uL (0.0-0.7); #Lymphocytes 2.6 thou/uL (1.20-3.40); #Monocytes 0.7 thou/uL (0.11-0.59); #Neutrophils 5.9 thou/uL (1.40-6.50); %Basophils 0.4 % (0.0-1.0); %Lymphocytes 26.6 % (21.0-51.0); %Monocytes 7.4 % (0.0-10.0); %Neutrophils 59.7 % (42.0-75.0); Hemoglobin 11.5 g/dL (12.0-16.0); Mean Corpuscular HGB CONC 32.8 g/dL (32.0-36.0); Mean Corpuscular Hemoglobin 29.9 pg (27.0-31.0); Mean Corpuscular Volume 91.1 fL (78.0-98.0); Mean Platelet Volume 8.3 fL (7.4-10.4); Platelet Count 226 thou/uL (130-400); RBC Distribution Width 12.2 % (11.5-14.5); Red Blood Cell (RBC) Count 3.83 mill/uL (4.20-5.40)
[2021-12-19 05:37] LABS: Anion Gap 13 mmol/L (10-20); BUN (Urea Nitrogen) 44 mg/dL (9.8-20.1); Calc. Creatinine Clearance 34 mL/min (70-130); Calcium 7.8 mg/dL (7.8-10.44); Carbon Dioxide 22 mmol/L (22-29); Chloride 107 mmol/L (98-107); Glucose 240 mg/dL (70-105); Potassium 4.7 mmol/L (3.5-5.1); Sodium 137 mmol/L (136-145)
[2021-12-19] MEDS: HumaLOG 300 UNITS/3 ML VIAL SC PRN (05:48)
[2021-12-19] MEDS: Levothyroxine Sodium 50 MCG TAB PO SCH (05:49)
[2021-12-19] MEDS: Famotidine 20 MG TAB PO SCH (08:28)
[2021-12-19] MEDS: Aspirin 81 mg Enteric Coated Tablet PO SCH (08:29)
[2021-12-19] MEDS: Carvedilol 6.25 MG TAB PO SCH (08:29)
[2021-12-19] MEDS: NIFEdipine XL 60 MG TAB PO SCH (08:29)
[2021-12-19] MEDS: Sodium Bicarbonate Tab 325 MG TAB PO SCH (08:29)
[2021-12-19] MEDS: FLUoxetine HCl 20 MG CAP PO SCH (08:29)
[2021-12-19] MEDS: HumaLOG 300 UNITS/3 ML VIAL SC SCH ×2 (08:31→11:33)
[2021-12-19] MEDS ORDERED: Insulin Glargine 30 UNITS/0.3 ML VIAL SC SCH ×2 (09:00→10:15)
[2021-12-19 11:55] VITALS: BP 109/53; TEMP 98.2
[2021-12-20] MEDS ORDERED: Insulin Glargine 30 UNITS/0.3 ML VIAL SC SCH (09:00)
== END 2021-12-19 14:28 | disposition home or self-care (01) | DRG 683 ==
LOC: ERS 03:56 → SUATTDRO 03:56 → 2SW 05:15 → OBSVTOIN 05:37
PROVIDERS: ADMIT Hospitalist; ATTEND Hospitalist
DX: N17.9 Acute kidney failure, unspecified (principal); I16.1 Hypertensive emergency; E87.1 Hypo-osmolality and hyponatremia; E87.2 Acidosis; N18.4 Chronic kidney disease, stage 4 (severe); Z20.822 Contact with and (suspected) exposure to COVID-19; E06.3 Autoimmune thyroiditis; H54.40 Blindness, one eye, unspecified eye; F41.9 Anxiety disorder, unspecified; E11.319 Type 2 diabetes mellitus with unspecified diabetic retinopathy without macular edema; E11.22 Type 2 diabetes mellitus with diabetic chronic kidney disease; I12.9 Hypertensive chronic kidney disease with stage 1 through stage 4 chronic kidney disease, or unspecified chronic kidney disease; E11.65 Type 2 diabetes mellitus with hyperglycemia; D63.1 Anemia in chronic kidney disease; E86.1 Hypovolemia; R22.0 Localized swelling, mass and lump, head; F32.A Depression, unspecified; H43.11 Vitreous hemorrhage, right eye; E87.5 Hyperkalemia; E11.649 Type 2 diabetes mellitus with hypoglycemia without coma; Z98.890 Other specified postprocedural states; Z79.899 Other long term (current) drug therapy; Z79.4 Long term (current) use of insulin; Z83.3 Family history of diabetes mellitus; Z82.49 Family history of ischemic heart disease and other diseases of the circulatory system; Z91.14 Patient's other noncompliance with medication regimen
CPT/HCPCS: 36415; 36416; 70450; 71045; 76770; 76999; 80048; 80053; 80061; 83036; 83735; 83880; 84443; 84484; 85025; 93005; 93306; J0360; J1815; J7050; J7070; J7120; U0003; U0005

== ENCOUNTER 2022-01-19 21:37 | Observation (INO) | payer SELFPAY ==
[~2022-01-19 21:37] MED LIST: Iopamidol-370 76% 500 ML 1 ML ONE
[2022-01-19] MEDS ORDERED: Fentanyl 100 MCG/2 ML VIAL ONE (21:41)
[2022-01-19] MEDS ORDERED: Labetalol HCl 100 MG/20 ML VIAL ONE (21:46)
[2022-01-19 22:01] LABS: #Basophils 0.1 thou/uL (0.0-0.2); #Eosinphils 0.5 thou/uL (0.0-0.7); #Lymphocytes 2.9 thou/uL (1.20-3.40); #Monocytes 0.7 thou/uL (0.11-0.59); %Basophils 0.7 % (0.0-1.0); %Eosinophils 5.1 % (0.0-10.0); %Lymphocytes 28.3 % (21.0-51.0); %Monocytes 7.2 % (0.0-10.0); %Neutrophils 58.7 % (42.0-75.0); Hemoglobin 14.3 g/dL (12.0-16.0); Mean Corpuscular HGB CONC 29.8 g/dL (32.0-36.0); Mean Corpuscular Hemoglobin 28.5 pg (27.0-31.0); Mean Corpuscular Volume 95.6 fL (78.0-98.0); Mean Platelet Volume 7.6 fL (7.4-10.4); Platelet Count 333 thou/uL (130-400); RBC Distribution Width 12.6 % (11.5-14.5); White Blood Cell (WBC) Count 10.2 thou/uL (4.8-10.8)
[2022-01-19 22:10] LABS: INR-International Normal Ratio 0.9
[2022-01-19 22:11] LABS: PTT 28.6 sec (22.9-36.1)
[2022-01-19] MEDS ORDERED: Aspirin Chewable 81 MG TAB ONE (22:14)
[2022-01-19 22:29] LABS: ALT (SGPT) 16 U/L (8-55); AST (SGOT) 13 U/L (5-34); Albumin 3.5 g/dL (3.5-5.0); Alkaline Phosphatase 131 U/L (40-110); Anion Gap 15 mmol/L (10-20); BUN (Urea Nitrogen) 38 mg/dL (9.8-20.1); Bilirubin, Total 0.2 mg/dL (0.2-1.2); CK (CPK) 32 U/L (29-168); Calc. Creatinine Clearance 0 mL/min (70-130); Calcium 8.6 mg/dL (7.8-10.44); Carbon Dioxide 21 mmol/L (22-29); Chloride 108 mmol/L (98-107); Estimated GFR 20; Globulin 3.8 g/dL (2.4-3.5); Glucose 212 mg/dL (70-105); Potassium 5.1 mmol/L (3.5-5.1); Protein, Total 7.3 g/dL (6.0-8.3); Sodium 139 mmol/L (136-145)
[2022-01-19 23:09] LABS: Bilirubin Negative (Negative); Blood, Urine Trace (Negative); Clarity Clear (Clear); Glucose, Urine (Dipstick) 300 mg/dL (Negative); Ketone, Urine Negative (Negative); Leukocyte Negative Leu/uL (Negative); Nitrite Negative (Negative); Protein, Urine (Dipstick) 600 mg/dL (Neg-Trace); RBC/HPF 0-3 HPF (0-3); Specific Gravity, Urine 1.029 (1.002-1.036); Squamous Epithelial 0-3 HPF (0-3); Urobilinogen Normal mg/dL (Less than 2)
[2022-01-19 23:16] LABS: Amphetamine Not Detected (NotDetected); Barbiturates Screen Not Detected (NotDetected); Benzodiazepine Screen Not Detected (NotDetected); Cocaine Metabolite Screen Not Detected (NotDetected); Methadone Not Detected (NotDetected); Methamphetamine Not Detected (NotDetected); Opiate Screen Not Detected (NotDetected); Oxycodone Screen Not Detected (NotDetected); Phencyclidine (PCP) Not Detected (NotDetected); THC/Cannabinoid Screen Not Detected (NotDetected); Tricyclic Screen Not Detected (NotDetected)
[2022-01-19 23:17] LABS: Bacteria/HPF None Seen HPF (None Seen); WBC/HPF 0-3 HPF (0-3)
[2022-01-19] MEDS ORDERED: Labetalol HCl 100 MG/20 ML VIAL SLOW IVP PRN (23:22)
[2022-01-19] MEDS ORDERED: hydrALAZINE 20 MG/ML VIAL SLOW IVP PRN (23:22)
[2022-01-19] MEDS ORDERED: Acetaminophen 325 MG TAB PO PRN (23:22)
[2022-01-19] MEDS ORDERED: Ondansetron PF 4 MG/2 ML Vial IVP PRN (23:22)
[2022-01-20] MEDS ORDERED: HumaLOG 300 UNITS/3 ML VIAL SC PRN (02:47)
[2022-01-20] MEDS ORDERED: Dextrose 50% Abboject 50 ML SYRINGE SLOW IVP PRN (02:47)
[2022-01-20] MEDS ORDERED: Dextrose 5% in Water 1,000 ML IV PRN (02:47)
[2022-01-20 06:48] LABS: SARS-CoV-2 NAA Rapid Test DETECTED (NotDetected)
[2022-01-20 08:09] LABS: Anion Gap 14 mmol/L (10-20); BUN (Urea Nitrogen) 36 mg/dL (9.8-20.1); Calc. Creatinine Clearance 0 mL/min (70-130); Carbon Dioxide 18 mmol/L (22-29); Chloride 111 mmol/L (98-107); Estimated GFR 23; Glucose 155 mg/dL (70-105); Potassium 4.9 mmol/L (3.5-5.1); Sodium 138 mmol/L (136-145)
[2022-01-20 08:34] LABS: #Basophils 0.1 thou/uL (0.0-0.2); #Eosinphils 0.6 thou/uL (0.0-0.7); #Lymphocytes 2.6 thou/uL (1.20-3.40); #Monocytes 0.8 thou/uL (0.11-0.59); #Neutrophils 4.3 thou/uL (1.40-6.50); %Basophils 0.7 % (0.0-1.0); %Eosinophils 6.8 % (0.0-10.0); %Lymphocytes 31.5 % (21.0-51.0); %Monocytes 9.5 % (0.0-10.0); %Neutrophils 51.5 % (42.0-75.0); Hemoglobin 12.2 g/dL (12.0-16.0); Mean Corpuscular HGB CONC 32.1 g/dL (32.0-36.0); Mean Corpuscular Hemoglobin 29.7 pg (27.0-31.0); Mean Corpuscular Volume 92.6 fL (78.0-98.0); Mean Platelet Volume 7.7 fL (7.4-10.4); Platelet Count 318 thou/uL (130-400); RBC Distribution Width 12.4 % (11.5-14.5); Red Blood Cell (RBC) Count 4.09 mill/uL (4.20-5.40); White Blood Cell (WBC) Count 8.4 thou/uL (4.8-10.8)
[2022-01-20] MEDS ORDERED: Enoxaparin Sodium 30 MG/0.3 ML SYRINGE SC SCH (09:00)
[2022-01-20 09:03] VITALS: BMI 30.9
[2022-01-20] MEDS ORDERED: Sodium Bicarbonate 75 MEQ in Sodium Chloride 0.45% 1,000 ML IV SCH (12:45)
[2022-01-20] MEDS ORDERED: Carvedilol 6.25 MG TAB PO SCH (13:00)
[2022-01-20] MEDS ORDERED: Levothyroxine Sodium 112 MCG TAB PO SCH (14:30)
[2022-01-20] MEDS: Carvedilol 6.25 MG TAB PO SCH (17:03)
[2022-01-20] MEDS ORDERED: Levothyroxine Sodium 100 MCG TAB PO SCH (17:15)
[2022-01-20] MEDS ORDERED: Lorazepam (BATCHED) 2 MG/ML SYR SLOW IVP SCH (19:15)
[2022-01-20] MEDS: NIFEdipine XL 60 MG TAB PO SCH (19:42)
[2022-01-20] MEDS ORDERED: Atorvastatin Calcium 40 MG TAB PO SCH (21:00)
[2022-01-20] MEDS ORDERED: FLUoxetine HCl 20 MG CAP PO SCH (21:00)
[2022-01-20] MEDS ORDERED: Insulin Glargine 30 UNITS/0.3 ML VIAL SC SCH (21:00)
[2022-01-20] MEDS ORDERED: Fioricet 325/50/40 mg Tablet PO PRN (21:51)
[2022-01-21] MEDS ORDERED: Lorazepam 0.5 MG TAB PO SCH (01:30)
[2022-01-21 05:06] LABS: #Eosinphils 0.5 thou/uL (0.0-0.7); #Lymphocytes 2.4 thou/uL (1.20-3.40); #Monocytes 0.7 thou/uL (0.11-0.59); #Neutrophils 4.6 thou/uL (1.40-6.50); %Basophils 0.4 % (0.0-1.0); %Eosinophils 6.6 % (0.0-10.0); %Monocytes 8.2 % (0.0-10.0); %Neutrophils 55.7 % (42.0-75.0); Hemoglobin 10.9 g/dL (12.0-16.0); Mean Corpuscular HGB CONC 32.8 g/dL (32.0-36.0); Mean Corpuscular Hemoglobin 30.3 pg (27.0-31.0); Mean Corpuscular Volume 92.4 fL (78.0-98.0); Mean Platelet Volume 7.5 fL (7.4-10.4); Platelet Count 289 thou/uL (130-400); RBC Distribution Width 12.2 % (11.5-14.5); White Blood Cell (WBC) Count 8.2 thou/uL (4.8-10.8)
[2022-01-21 05:27] LABS: Anion Gap 12 mmol/L (10-20); BUN (Urea Nitrogen) 37 mg/dL (9.8-20.1); Calc. Creatinine Clearance 32 mL/min (70-130); Calcium 7.5 mg/dL (7.8-10.44); Carbon Dioxide 19 mmol/L (22-29); Chloride 110 mmol/L (98-107); Cholesterol 141 mg/dl (< 200 Desired); Estimated GFR 20; Glucose 171 mg/dL (70-105); HDL Cholesterol 28 mg/dL (>60 Neg Risk); LDL Cholesterol, Calculated 84 mg/dL; Potassium 5.1 mmol/L (3.5-5.1); Sodium 136 mmol/L (136-145); Triglycerides 147 mg/dL (Less than 150)
[2022-01-21 05:47] LABS: Free T4 (Free Thyroxine) 0.8 ng/dL (0.70-1.48)
[2022-01-21] MEDS ORDERED: Levothyroxine Sodium 100 MCG TAB PO SCH (06:00)
[2022-01-21] MEDS: HumaLOG 300 UNITS/3 ML VIAL SC PRN ×2 (06:12→10:56)
[2022-01-21] MEDS: NIFEdipine XL 60 MG TAB PO SCH (08:35)
[2022-01-21] MEDS: Carvedilol 6.25 MG TAB PO SCH (08:35)
[2022-01-21] MEDS ORDERED: Aspirin 81 mg Enteric Coated Tablet PO SCH (09:00)
[2022-01-21 11:26] VITALS: TEMP 97.6
[2022-01-21 13:32] VITALS: BP 141/69
== END 2022-01-21 12:08 | disposition home or self-care (01) ==
LOC: ERS 21:37 → ERHOLD 23:19 → 2SW 01-20 08:52
PROVIDERS: ADMIT Family Medicine; ATTEND Family Medicine
DX: R53.1 Weakness (principal); R51.9 Headache, unspecified; E03.9 Hypothyroidism, unspecified; I13.0 Hypertensive heart and chronic kidney disease with heart failure and stage 1 through stage 4 chronic kidney disease, or unspecified chronic kidney disease; E11.22 Type 2 diabetes mellitus with diabetic chronic kidney disease; N18.30 Chronic kidney disease, stage 3 unspecified; I50.32 Chronic diastolic (congestive) heart failure; E11.65 Type 2 diabetes mellitus with hyperglycemia; H35.61 Retinal hemorrhage, right eye; U07.1 COVID-19; E11.10 Type 2 diabetes mellitus with ketoacidosis without coma; E11.319 Type 2 diabetes mellitus with unspecified diabetic retinopathy without macular edema; F17.210 Nicotine dependence, cigarettes, uncomplicated; E04.2 Nontoxic multinodular goiter; H54.62 Unqualified visual loss, left eye, normal vision right eye; F41.0 Panic disorder [episodic paroxysmal anxiety]; Z79.4 Long term (current) use of insulin; Z79.84 Long term (current) use of oral hypoglycemic drugs; Z79.890 Hormone replacement therapy; Z79.899 Other long term (current) drug therapy
CPT/HCPCS: 36415; 36416; 51701; 70450; 70496; 70498; 70551; 80048; 80053; 80061; 80306; 81003; 81015; 82550; 83036; 84439; 84443; 84481; 84484; 85025; 85610; 85730; 87077; 87086; 87186; 93005; 96372; 96374; 96375; G0378; J0360; J1650; J1815; J2060; J3010; Q9967; U0002

== ENCOUNTER 2022-02-05 10:12 | Day surgery (SDC) | payer OTHER ==
[2022-02-01 13:25] VITALS: BMI 31.1
[~2022-02-05 10:12] MED LIST changes: +EPINEPHrine 0.3 MG in Ophthalmic Irrigation Solution 500 ML IRR SCH; -Iopamidol-370 76% 500 ML 1 ML ONE; +Midazolam HCl 2 mg/2 ml Vial ONE; +fentaNYL Citrate/PF 100 MCG/2 ML SYRINGE ONE
[2022-02-05] MEDS ORDERED: Cyclopentolate 1% Opth Drop 2 ML BOT ONE (10:32)
[2022-02-05] MEDS ORDERED: Phenylephrine 2.5% Ophth Soln 5 ML BOT ONE (10:32)
[2022-02-05] MEDS ORDERED: Maxitrol 0.1% Opth Oint 3.5 GM TUBE ONE (11:27)
[2022-02-05] MEDS ORDERED: Bupivacaine 0.75% 10 ML VIAL ONE (11:27)
[2022-02-05] MEDS ORDERED: Lidocaine 4% PF 5 ML AMP ONE (11:27)
[2022-02-05] MEDS ORDERED: CEFAZOLIN 1 GM VIAL ONE (11:27)
[2022-02-05] MEDS ORDERED: Lidocaine 1% PF 5 ML VIAL ONE (11:27)
[2022-02-05] MEDS ORDERED: PROPOFOL 200 MG/20 ML VIAL ONE (11:27)
[2022-02-05] MEDS ORDERED: Triamcinolone 40 MG/ML VIAL ONE (11:27)
== END 2022-02-05 12:38 | disposition home or self-care (01) ==
LOC: SDC 10:12
PROVIDERS: ATTEND Ophthalmology Retina Specialist
PROC: 08QF3ZZ Repair Left Retina, Percutaneous Approach (ICD-10-PCS; principal; 2022-02-05)
PROC: 08T53ZZ Resection of Left Vitreous, Percutaneous Approach (ICD-10-PCS; principal; 2022-02-05)
DX: H43.12 Vitreous hemorrhage, left eye (principal); Z79.4 Long term (current) use of insulin; Z79.84 Long term (current) use of oral hypoglycemic drugs; Z79.899 Other long term (current) drug therapy
CPT/HCPCS: 36416; J0171; J0690; J2250; J2704; J3301; J3490

== ENCOUNTER 2022-04-05 09:27 | Inpatient (IN) | payer SELFPAY ==
[2022-04-05 10:03] LABS: #Eosinphils 0.6 thou/uL (0.0-0.7); #Lymphocytes 1.8 thou/uL (1.20-3.40); #Monocytes 0.5 thou/uL (0.11-0.59); #Neutrophils 6.2 thou/uL (1.40-6.50); %Basophils 0.4 % (0.0-1.0); %Eosinophils 6.1 % (0.0-10.0); %Lymphocytes 20.2 % (21.0-51.0); %Monocytes 5.5 % (0.0-10.0); %Neutrophils 67.8 % (42.0-75.0); Hemoglobin 9.9 g/dL (12.0-16.0); Mean Corpuscular HGB CONC 32.1 g/dL (32.0-36.0); Mean Corpuscular Hemoglobin 29.6 pg (27.0-31.0); Mean Corpuscular Volume 92.3 fL (78.0-98.0); Mean Platelet Volume 7.4 fL (7.4-10.4); Platelet Count 283 thou/uL (130-400); RBC Distribution Width 13.5 % (11.5-14.5); Red Blood Cell (RBC) Count 3.34 mill/uL (4.20-5.40); White Blood Cell (WBC) Count 9.1 thou/uL (4.8-10.8)
[2022-04-05 10:35] LABS: ALT (SGPT) 15 U/L (8-55); AST (SGOT) 11 U/L (5-34); Albumin 3.1 g/dL (3.5-5.0); Alkaline Phosphatase 110 U/L (40-110); Anion Gap 11 mmol/L (10-20); BUN (Urea Nitrogen) 58 mg/dL (9.8-20.1); Bilirubin, Total 0.3 mg/dL (0.2-1.2); Calc. Creatinine Clearance 0 mL/min (70-130); Calcium 7.9 mg/dL (7.8-10.44); Carbon Dioxide 20 mmol/L (22-29); Chloride 109 mmol/L (98-107); Estimated GFR 12; Glucose 251 mg/dL (70-105); Potassium 5.4 mmol/L (3.5-5.1); Protein, Total 6.1 g/dL (6.0-8.3); Sodium 135 mmol/L (136-145)
[2022-04-05] MEDS ORDERED: Dextrose 50% Abboject 50 ML SYRINGE SLOW IVP PRN (12:02)
[2022-04-05] MEDS ORDERED: Acetaminophen 325 MG TAB PO PRN (12:02)
[2022-04-05] MEDS ORDERED: Dextrose 5% in Water 1,000 ML IV PRN (12:02)
[2022-04-05] MEDS ORDERED: HumaLOG 300 UNITS/3 ML VIAL SC PRN ×2 (12:02)
[2022-04-05] MEDS ORDERED: Sodium Chloride 0.9% 1,000 ML IV SCH (12:15)
[2022-04-05] MEDS ORDERED: hydrALAZINE 20 MG/ML VIAL SLOW IVP PRN (12:15)
[2022-04-05] MEDS ORDERED: Dextrose 50% Abboject 50 ML SYRINGE ONE (12:25)
[2022-04-05] MEDS ORDERED: Insulin Regular 300 UNITS/3 ML VIAL ONE (12:25)
[2022-04-05 12:40] LABS: Magnesium 1.8 mg/dL (1.6-2.6); Phosphorus 4.7 mg/dL (2.3-4.7)
[2022-04-05] MEDS ORDERED: Nitroglycerin 2% Ointment 1 INCH/1 GM Packet ONE (13:25)
[2022-04-05] MEDS ORDERED: LOKELMA 10 GM PACKET PO SCH (14:15)
[2022-04-05 16:23] VITALS: BMI 31.6
[2022-04-05 16:25] LABS: Anion Gap 11 mmol/L (10-20); BUN (Urea Nitrogen) 53 mg/dL (9.8-20.1); Calc. Creatinine Clearance 24 mL/min (70-130); Calcium 7.8 mg/dL (7.8-10.44); Carbon Dioxide 17 mmol/L (22-29); Chloride 114 mmol/L (98-107); Estimated GFR 14; Glucose 112 mg/dL (70-105); Potassium 5.1 mmol/L (3.5-5.1); Sodium 137 mmol/L (136-145)
[2022-04-05] MEDS: Sodium Chloride 0.9% 1,000 ML IV SCH (18:26)
[2022-04-05] MEDS: Atorvastatin Calcium 40 MG TAB PO SCH (20:32)
[2022-04-05] MEDS: Insulin Glargine 30 UNITS/0.3 ML VIAL SC SCH (21:43)
[2022-04-06 04:59] LABS: #Eosinphils 0.6 thou/uL (0.0-0.7); #Lymphocytes 2.4 thou/uL (1.20-3.40); #Monocytes 0.8 thou/uL (0.11-0.59); #Neutrophils 5.4 thou/uL (1.40-6.50); %Basophils 0.2 % (0.0-1.0); %Eosinophils 6.6 % (0.0-10.0); %Lymphocytes 26.3 % (21.0-51.0); %Monocytes 8.7 % (0.0-10.0); %Neutrophils 58.3 % (42.0-75.0); Mean Corpuscular HGB CONC 32.2 g/dL (32.0-36.0); Mean Corpuscular Hemoglobin 29.6 pg (27.0-31.0); Mean Platelet Volume 7.6 fL (7.4-10.4); Platelet Count 265 thou/uL (130-400); RBC Distribution Width 13.4 % (11.5-14.5); Red Blood Cell (RBC) Count 3.05 mill/uL (4.20-5.40); White Blood Cell (WBC) Count 9.2 thou/uL (4.8-10.8)
[2022-04-06 05:12] LABS: Anion Gap 11 mmol/L (10-20); BUN (Urea Nitrogen) 53 mg/dL (9.8-20.1); Calc. Creatinine Clearance 26 mL/min (70-130); Calcium 7.8 mg/dL (7.8-10.44); Carbon Dioxide 19 mmol/L (22-29); Chloride 113 mmol/L (98-107); Estimated GFR 15; Glucose 154 mg/dL (70-105); Potassium 4.7 mmol/L (3.5-5.1); Sodium 138 mmol/L (136-145)
[2022-04-06] MEDS ORDERED: NIFEdipine XL 60 MG TAB PO SCH (09:00)
[2022-04-06] MEDS: glipiZIDE 5 MG TAB PO SCH (09:53)
[2022-04-06] MEDS: HumaLOG 300 UNITS/3 ML VIAL SC SCH ×3 (09:53→18:26)
[2022-04-06] MEDS: Insulin Glargine 30 UNITS/0.3 ML VIAL SC SCH ×4 (09:53→20:39)
[2022-04-06] MEDS: FLUoxetine HCl 20 MG CAP PO SCH (09:54)
[2022-04-06] MEDS: Sodium Chloride 0.9% 1,000 ML IV SCH (15:33)
[2022-04-06] MEDS: Atorvastatin Calcium 40 MG TAB PO SCH (20:39)
[2022-04-06] MEDS: Sodium Bicarbonate Tab 325 MG TAB PO SCH (20:39)
[2022-04-06] MEDS ORDERED: Lorazepam 0.5 MG TAB PO PRN (23:17)
[2022-04-07 04:46] LABS: #Eosinphils 0.6 thou/uL (0.0-0.7); #Lymphocytes 1.8 thou/uL (1.20-3.40); #Monocytes 0.8 thou/uL (0.11-0.59); #Neutrophils 6.2 thou/uL (1.40-6.50); %Basophils 0.3 % (0.0-1.0); %Eosinophils 6.6 % (0.0-10.0); %Monocytes 8.2 % (0.0-10.0); Hemoglobin 8.9 g/dL (12.0-16.0); Mean Corpuscular HGB CONC 31.8 g/dL (32.0-36.0); Mean Corpuscular Hemoglobin 29.2 pg (27.0-31.0); Mean Corpuscular Volume 91.9 fL (78.0-98.0); Mean Platelet Volume 7.4 fL (7.4-10.4); Platelet Count 263 thou/uL (130-400); RBC Distribution Width 13.4 % (11.5-14.5); Red Blood Cell (RBC) Count 3.05 mill/uL (4.20-5.40); White Blood Cell (WBC) Count 9.4 thou/uL (4.8-10.8)
[2022-04-07 05:01] LABS: Anion Gap 10 mmol/L (10-20); BUN (Urea Nitrogen) 51 mg/dL (9.8-20.1); Calc. Creatinine Clearance 27 mL/min (70-130); Calcium 7.6 mg/dL (7.8-10.44); Carbon Dioxide 18 mmol/L (22-29); Chloride 116 mmol/L (98-107); Estimated GFR 16; Glucose 75 mg/dL (70-105); Potassium 5.1 mmol/L (3.5-5.1); Sodium 139 mmol/L (136-145)
[2022-04-07] MEDS: glipiZIDE 5 MG TAB PO SCH (08:58)
[2022-04-07] MEDS: Sodium Bicarbonate Tab 325 MG TAB PO SCH (08:58)
[2022-04-07] MEDS: Sodium Chloride 0.9% 1,000 ML IV SCH (08:58)
[2022-04-07] MEDS: HumaLOG 300 UNITS/3 ML VIAL SC SCH ×2 (08:58→12:07)
[2022-04-07] MEDS: FLUoxetine HCl 20 MG CAP PO SCH (08:58)
[2022-04-07] MEDS: Insulin Glargine 30 UNITS/0.3 ML VIAL SC SCH ×2 (08:58→12:07)
[2022-04-07] MEDS ORDERED: NIFEdipine XL 90 MG TAB PO SCH (09:00)
[2022-04-07 11:07] VITALS: BP 138/70; TEMP 98.6
[2022-04-08] MEDS ORDERED: FLU VACC QS2022-23(6MOS UP)/PF 60 MCG/0.5 ML SYRINGE IM ONE (19:15)
== END 2022-04-07 13:57 | disposition home or self-care (01) | DRG 683 ==
LOC: ERS 09:27 → SUATTDRO 09:27 → 2NO 11:56
PROVIDERS: ADMIT Family Medicine; ATTEND Internal Medicine
DX: N17.9 Acute kidney failure, unspecified (principal); E87.20 Acidosis, unspecified; E06.3 Autoimmune thyroiditis; F41.9 Anxiety disorder, unspecified; E11.22 Type 2 diabetes mellitus with diabetic chronic kidney disease; E11.51 Type 2 diabetes mellitus with diabetic peripheral angiopathy without gangrene; I12.9 Hypertensive chronic kidney disease with stage 1 through stage 4 chronic kidney disease, or unspecified chronic kidney disease; F17.210 Nicotine dependence, cigarettes, uncomplicated; E78.5 Hyperlipidemia, unspecified; E87.5 Hyperkalemia; D63.1 Anemia in chronic kidney disease; E11.65 Type 2 diabetes mellitus with hyperglycemia; N18.4 Chronic kidney disease, stage 4 (severe); Z20.822 Contact with and (suspected) exposure to COVID-19; Z79.4 Long term (current) use of insulin
CPT/HCPCS: 36415; 36416; 71045; 76770; 80048; 80053; 83735; 84100; 84443; 84484; 85025; 93005; 94760; 96374; 96375; J1815; J7050; J7999; U0003; U0005